=== PATIENT | female | born 1975 | race Caucasian/White ===

== ENCOUNTER 2021-03-10 17:04 | Emergency (ER) | payer MEDICAID ==
[2021-03-10 17:28] VITALS: BP 158/72; PULSE 93; RESP 16; TEMP 98
[2021-03-10] MEDS ORDERED: SODIUM CHLORIDE 0.9% 500 ML 500 ML IV STA (17:39)
[2021-03-10] MEDS ORDERED: DIPH,PERTUS(ACELL)TETVAC-LF 0.5 ML VIAL IM ONE (17:39)
[2021-03-10] MEDS ORDERED: HYDROmorphone 1 MG/ML 1 ML SYRINGE IVP STA (17:39)
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
== END 2021-03-10 18:30 | disposition other institution (70) ==
LOC: EC 17:04
DX: T22.132A Burn of first degree of left upper arm, initial encounter (principal); T31.0 Burns involving less than 10% of body surface; F17.200 Nicotine dependence, unspecified, uncomplicated; Z98.51 Tubal ligation status; X12.XXXA Contact with other hot fluids, initial encounter
CPT/HCPCS: 99291; 96374; 90471; 90715; J1170

== ENCOUNTER 2021-04-14 08:08 | Inpatient (IN) | payer MEDICAID, OTHER ==
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
[2021-04-14 09:04] LABS: Appearance,Urine Clear (Clear); Bilirubin,Urine Negative (Negative); Blood,Urine Negative (Negative); Color,Urine Dark Brown; Glucose,Urine (UA) Negative (Negative); Ketones,Urine Negative (Negative); Leukocyte Esterase,Urine Negative (Negative); Nitrite,Urine Negative (Negative); Protein,Urine Negative (Negative); Specific Gravity,Urine 1.005 (1.001-1.035); Urobilinogen,Urine <2.0 mg/dL (<2.0)
[2021-04-14 09:14] LABS: Basophils % (A) 0 %; Eosinophils # (A) 0.1 k/uL (0-0.7); Eosinophils % (A) 0 %; HCT 45.2 % (34.0-46.0); HGB 15.1 gm/dL (11.4-16.0); Lymphocytes % (A) 5 %; MCH 33.6 pg (25.0-35.0); MCHC 33.4 g/dL (31.0-37.0); MCV 100.6 fL (80.0-100.0); Mean Platelet Volume 7.5; Monocytes # (A) 0.7 k/uL (0-1.0); Monocytes % (A) 4 %; Neutrophils # (A) 16.3 k/uL (1.3-7.7); Neutrophils % (A) 90 %; Platelet Count 349 k/uL (150-450); RBC 4.49 m/uL (3.80-5.40); RDW 12.5 % (11.5-15.5); WBC 18.2 k/uL (3.8-10.6)
[2021-04-14 09:25] LABS: ALT 15 U/L (4-34); AST 20 U/L (14-36); African American GFR (CKD) >90 (>60 ml/min/1.73 sqM); Albumin 4.1 g/dL (3.5-5.0); Alkaline Phosphatase 60 U/L (38-126); Anion Gap 7 mmol/L; Blood Urea Nitrogen 10 mg/dL (7-17); Calcium 9.6 mg/dL (8.4-10.2); Carbon Dioxide 21 mmol/L (22-30); Chloride 106 mmol/L (98-107); Glucose 118 mg/dL (74-99); Non-African American GFR(CKD) >90 (>60 ml/min/1.73 sqM); Potassium 4.2 mmol/L (3.5-5.1); Sodium 134 mmol/L (137-145); Total Bilirubin 0.6 mg/dL (0.2-1.3); Total Protein 6.8 g/dL (6.3-8.2)
[2021-04-14 09:26] LABS: Amphetamine Screen,Urine Not Detected (NotDetected); Barbiturate Screen,Urine Not Detected (NotDetected); Benzodiazepines Screen,Urine Not Detected (NotDetected); Cocaine Screen,Urine Not Detected (NotDetected); Methadone Screen, Urine Not Detected (NotDetected); Opiate Screen,Urine Detected (NotDetected); Oxycodone Screen, Urine Not Detected (NotDetected); Phencyclidine Screen,Urine Not Detected (NotDetected); Tricyclic Antidepressant,Urine Not Detected (NotDetected); Urn Cannabinoid Scrn Detected (NotDetected)
--- NOTE | 2021-04-14 11:11 | CT ---
EXAMINATION TYPE: CT abdomen pelvis w con DATE OF EXAM: 04/14/2021 HISTORY: Urinary retention, Vaginal mass, dysuria, urinary frequency. CT DLP: 750.8mGycm Automated Exposure Control for Dose Reduction was Utilized. CONTRAST: CT scan of the abdomen and pelvis is performed without oral but with IV Contrast, patient injected wi th 100 mL of Isovue 300. COMPARISON: None. FINDINGS: LUNG BASES: Dependent atelectasis. LIVER/GB: No significant abnormality is appreciated. PANCREAS: No significant abnormality is seen. SPLEEN: No significant abnormality is seen. ADRENALS: No significant abnormality is seen. KIDNEYS: Symmetric cortical medullary uptake and excretion despite severe right and moderate to sever e left-sided pyelocaliectasis. Madrigal catheter decompresses bladder which is displaced anteriorly and superiorly axial image 58. Incidental accessory right renal artery coronal image 53 BOWEL: No suspicious small or large bowel dilatation. UTERUS/ADNEXA: Heterogeneous large uterus with areas of lobulation and calcification superiorly centr al hypodensity or fluid noted superior portion axial image 48 and inferior aspect sagittal image 58. Significant local mass effect occupying majority of pelvis and central mid to lower abdomen noted. Di fficulty visualizing normal or abnormal ovaries. Small amount of fluid with some prominent vessels al reji the periphery in the upper pelvis extending to left of midline. Size of lesion approximately 21 c m craniocaudal dimension by 14 cm transversely sagittal image 62 and coronal image 37 LYMPH NODES: No greater than 1cm abdominal or pelvic lymph nodes are appreciated. OSSEOUS STRUCTURES: Symmetric sclerosis bilateral sacroiliac joints consistent with osteitis condensa ns ilii. OTHER: Incidental origin of small caliber artery suspected left gastric artery directly from aorta, n ormal variant. IMPRESSION: Markedly enlarged lobulated heterogeneous uterus with significant local mass effect would favor fibroid type uterus. Other etiologies aren't entirely excluded. Either way due to local mass e ffect causing moderate to severe right greater than left hydronephrosis, surgical exploration or armando tonny is likely warranted.
[2021-04-14] MEDS ORDERED: SODIUM CHLORIDE 0.9% 1,000 ML IV ONE (12:18)
--- NOTE | 2021-04-14 16:52 | P.HPOB ---
History of Present Illness H&P Date: 04/14/21 Chief Complaint: Significant urinary retention, fibroid uterus The patient is a 46-year-old 3 para 2011 who is seen in the emergency room today for difficulty with urinary retention. In the emergency room she had a catheter placed and was drained of 2200 mL of urine. Computed tomography scan demonstrated a large fibroid uterus with bilateral hydronephrosis. The patient reports that she has had this difficulty for approximately a year and it seems to coincide with her cycles. She does continue to have regular cycles every 28- 30 days lasting for several days at a time which are not overly heavy or onerous in any other way. She has not had a ATM SERVICER evaluation most likely since the of her child many years ago. She is sexually active and denies any significant dyspareunia though she reports her partner recently mentioned to her that something felt significantly different to him during intercourse. The pain which prompted the patient to present to the emergency room has been completely relieved with draining the bladder. Obstetrical history: 3 para 2012 with 2 term vaginal deliveries and 1 elective interruption of . Method of contraception is tubal ligation. Gynecologic history: Patient denies any recent or historical history of infections to include STDs. She has not had a ATM SERVICER evaluation in many years. Review of Systems Review of systems is confined to history of present illness. Past Medical History Past Medical History: No Reported History Additional Past Medical History / Comment(s): Multiple UTIs/urinary retention, chronic low back pain History of Any Multi-Drug Resistant Organisms: None Reported Past Surgical History: Orthopedic Surgery, Tubal Ligation Additional Past Surgical History / Comment(s): bone graft left wrist at age 11, ORIF RT ELBOW SX X3 Past Anesthesia/Blood Transfusion Reactions: No Reported Reaction Past Psychological History: No Psychological Hx Reported Additional Psychological History / Comment(s): Pt resides with her spouse. She is independent. Smoking Status: Current every day smoker Past Alcohol Use History: Daily Additional Past Alcohol Use History / Comment(s): Pt started smoking in 1985 and is a ppd smoker. Pt states she drinks 2-6 beers per day. Past Drug Use History: None Reported Additional Drug Use History / Comment(s): QUIT TODAY 10/28/2015 - Past Family History Mother Family Medical History: No Reported History Additional Family Medical History / Comment(s): Mother is healthy Father Family Medical History: Hypertension Medications and Allergies Home Medications Medication Instructions Recorded Confirmed Type HYDROcodone/APAP 10-325MG [[place] 1 tab PO Q6H PRN 04/14/21 04/14/21 History 10] Allergies Allergy/AdvReac Type Severity Reaction Status Date / Time No Known Allergies Allergy Verified 04/14/21 11:11 Exam Vital Signs Temp Pulse Pulse Resp BP BP Pulse Ox 04/14/21 14:41 98.7 F 74 17 149/94 96 04/14/21 12:13 68 16 149/88 99 04/14/21 09:53 89 18 140/90 97 04/14/21 08:09 98.4 F 112 H 18 194/129 94 L Intake and Output 04/14/21 04/14/21 04/14/21 06:59 14:59 22:59 Output Total 2750 Balance -2750 Output: Urine 2750 Other: Voiding Method Indwelling Catheter Weight 56.699 kg In general, this is a well-developed, well-nourished white female in no acute distress. Her heart has a regular rhythm and rate without murmur. Her lungs are clear to auscultation bilaterally in all castle. Her abdomen is nondistended, has normal active bowel sounds, soft, nontender, and without any palpable masses. Her extremities are without any cyanosis, clubbing, or edema and are nontender to palpation bilaterally. Bimanual pelvic examination demonstrates the entire posterior cul-de-sac filled with a large fibroid. I am unable to appreciate the cervix as I believe it is diverted acutely anteriorly and that the uterus itself given the size and degree of inversion is obstructing outflow the urine through the urethra. I suspect the hydronephrosis is secondary to the tremendous distention of the bladder, not direct uterine press ure on the ureters themselves. Results Result Diagrams: 04/14/21 08:52 04/14/21 08:52 Abnormal Lab Results - Last 24 Hours (Table) 04/14/21 04/14/21 04/14/21 Range/Units 08:49 08:52 08:52 WBC 18.2 H (3.8-10.6) k/uL MCV 100.6 H (80.0-100.0) fL Neutrophils # 16.3 H (1.3-7.7) k/uL Sodium 134 L (137-145) mmol/L Carbon Dioxide 21 L (22-30) mmol/L Glucose 118 H (74-99) mg/dL Urine Opiates Screen Detected H (NotDetected) U Marijuana (THC) Screen Detected H (NotDetected) Assessment and Plan (1) Enlarged uterus Current Visit: Yes Status: Acute Code(s): N85.2 - HYPERTROPHY OF UTERUS SNOMED Code(s): 900464406 (2) Urinary retention Current Visit: Yes Status: Acute Code(s): R33.9 - RETENTION OF URINE, UNSPECIFIED SNOMED Code(s): 399413348 Plan: The patient was admitted secondary to acute obstruction of the urinary tract. As noted above, I suspect that it is due to the enlarged size with acute retroversion with the fundus of the uterus filling the cul-de-sac leading to acute obstruction of the urethra anteriorly. This will likely require hysterectomy to have complete resolution. In the short-term, I will allow the patient to have diet as tolerated as well as activity as tolerated with catheter in place while I range to find a time in the next day or 2 to proceed with total abdominal hysterectomy. As the patient does chronically take [place] through a physical medicine and rehabilitation doctor with him she has a contract, I have continued to [place] at a smaller dose of 5/325 mg every 6 hours when necessary. She reportedly takes 1 10/325 mg [place] daily for chronic low back pain secondary to an acute injury in 2005.
[2021-04-14] MEDS: HYDROcodone/APAP 5-325MG 1 EACH TAB PO PRN (18:41)
[2021-04-15] MEDS: HYDROcodone/APAP 5-325MG 1 EACH TAB PO PRN (00:49)
[2021-04-15] MEDS ORDERED: LACTATED RINGERS 1,000 ML IV ONE ×2 (10:05→12:25)
[2021-04-15] MEDS ORDERED: ONDANSETRON 4 MG/2 ML VIAL ONE (10:13)
[2021-04-15] MEDS ORDERED: DEXAMETHASONE SOD PHOSPHATE 4 MG/ML 1 ML VIAL IV ONE (10:15)
[2021-04-15] MEDS ORDERED: MIDAZOLAM 2 MG/2 ML VIAL IV ONE (10:57)
[2021-04-15] MEDS ORDERED: SUCCINYLCHOLINE CHLORIDE 100 MG/5 ML SYR IV ONE (11:38)
[2021-04-15] MEDS ORDERED: GLYCOPYRROLATE 0.2 MG/ML 2 ML VIAL ONE (11:38)
[2021-04-15] MEDS ORDERED: MIDAZOLAM 2 MG/2 ML VIAL ONE (11:38)
[2021-04-15] MEDS ORDERED: fentaNYL (PF) 50 MCG/ML 2 ML AMP ONE (11:38)
[2021-04-15] MEDS ORDERED: HYDROmorphone (PF) 1 MG/ML ONE (11:38)
[2021-04-15] MEDS ORDERED: MORPHINE SULFATE (PF) 0.3 MG/0.3 ML SYR ONE (11:38)
[2021-04-15] MEDS ORDERED: PROPOFOL 10 MG/ML 20 ML VIAL IV ONE (11:38)
[2021-04-15] MEDS ORDERED: ROCURONIUM 10 MG/ML (5 ML VIAL) IV ONE (11:38)
[2021-04-15] MEDS ORDERED: NEOSTIGMINE 1 MG/ML 10 ML VIAL ONE (11:38)
[2021-04-15] MEDS ORDERED: LIDOCAINE 1% INJ 10MG/ML (20 ML MDV) ONE (11:38)
[2021-04-15] MEDS ORDERED: diphenhydrAMINE 50 MG/ML 1 ML VIAL IVP PRN (12:56)
[2021-04-15] MEDS ORDERED: SIMETHICONE 80 MG CHEWABLE PO PRN (12:56)
[2021-04-15] MEDS ORDERED: ONDANSETRON 4 MG/2 ML VIAL IVP PRN (12:56)
[2021-04-15] MEDS ORDERED: METOCLOPRAMIDE 5 MG/ML 2 ML VIAL IVP PRN (12:56)
[2021-04-15] MEDS ORDERED: HYDROcodone/APAP 5-325MG 1 EACH TAB PO PRN (13:01)
--- NOTE | 2021-04-15 13:11 | P.OP ---
Date of Procedure: 04/15/21 Preoperative Diagnosis: #1. Large symptomatic fibroid uterus #2. Urinary retention Postoperative Diagnosis: Same, pending pathology Procedure(s) Performed: #1. Total abdominal hysterectomy Anesthesia: SANDY Surgeon: Oscar Serrano Railroad Track Inspector #1: Sabrina Atwood Estimated Blood Loss (ml): 500 IV fluids (ml): 1,000 Urine output (ml): 200 Pathology: other (Uterus, left tube and ovary) Disposition: PACU Operative Findings: After anesthesia had been administered, abdominal examination demonstrated the uterus to be just below the umbilicus which was not appreciated previously secondary to patient discomfort with exam. The decision was therefore made to proceed with a vertical midline incision. Intraoperatively, there were multiple large fibroids, both intramural as well as pedunculated. The mass felt on pelvic exam filling the posterior cul-de-sac is unclear as to whether it is a fibroid involving the left ovary or whether the mass may be of ovarian origin. Nevertheless, it was required to be included in the specimen. The vascularity, particularly on the patient's left side was significant. There was no evidence of any adenopathy palpable in the pelvis or periaortic area. The pelvis was otherwise clean. The entire cervix was removed. The right ovary appeared to be completely healthy and was therefore left in place. Description of Procedure: The patient was prepped and draped after identifying the size of the uterus abdominally and after general endotracheal anesthesia was administered by the anesthesiologist. A vertical midline incision was made from just below the umbilicus to just above the pubic symphysis and extended into the abdominal cavity without difficulty. The large fibroid uterus with multiple different areas of fibromatous change was noted with a very large mass filling the posterior cul-de-sac. Ultimately, the mass was elevated from deep in the pelvis and through the incision allowing clear visualization of the vascularity which was most prominent on the patient's left side. At that time the ovary appeared to be either involved with the fibromatous change or perhaps involved in its own pathology but was contiguous with the uterus. After identifying the proper anatomy, the right round ligament was elevated, clamped with a Arlyn-Martin clamp, cut, and ligated with a stitch of 0 Vicryl. The bladder peritoneum was developed to the midline. A window was made in the posterior leaf of the peritoneum to isolate the utero-ovarian pedicle which was clamped with a Mingo Martin clamp, cut, and suture-ligated with a transfixion stitch of 0 Vicryl followed by free tie of 0 Vicryl. Attention was then turned to the left side which was much more complex regarding the vascularity. The round ligament was again elevated, clamped with Arlyn-Martin clamp, cut, and the ligated with a stitch of 0 Vicryl. Again a safe window was able to be identified in the posterior leaf of the peritoneum which was opened sharply allowing isolation of the infundibulopelvic ligament and a tremendous amount of vascularity to both the tube and ovary. A curved Arlyn-Martin clamp was placed across the entire pedicle with a back clamp placed for backbleeding and the pedicle divided. It was suture-ligated with a stitch of 0 Vicryl while the baby a free tie of 0 Vicryl. The uterine vasculature was then identified bilaterally. Each side was clamped with curved Arlyn-Martin clamp, cut, and suture-ligated with a transfixion stitch of 0 Vicryl. Serial bites were then taken down the cardinal ligament towards the uterosacral ligaments on each side with straight Mingo Martin clamps. Each was cut with the Lovett scissors, and suture- ligated with a transfixion stitch of 0 Vicryl. At the angle of the vagina, 2 curved Arlyn-Martin clamps were utilized to come underneath the cervix allowing the specimen to be amputated from the patient where was then followed and sent for pathological diagnoses. The angles of the vagina were then transfixion stitch with 0 Vicryl. The intervening open vaginal cuff was grasped with [place] clamps and the cuff closed from angle to angle with a running locking stitch of 0 Vicryl. Some ongoing bleeding was noted in the area between the uterine vasculature on the right and the ovarian pedicle which was left in place. This was transfixion stitched with several [id number] stitches of 0 Vicryl. The patient's urine remained clear throughout the entire case. There was no concern for involvement anywhere in or around the likely placement of the ureters. Thorough irrigation was carried out and no further points of bleeding were noted. The sponge count was then checked and found to be accurate. The parietal peritoneum was loosely reapproximated and the fascia closed with 2 running stitches of 0 Vicryl proceeding from each end of the incision to the midline. The subcutaneous tissues were examined and made hemostatic with the Bovie. As they were gaping slightly, they were reapproximated with 3 interrupted stitches of 3-0 chromic catgut. The skin was reapproximated with regular surgical sahara and a dressing applied. Estimated blood loss for the case was approximate 500 mL. There were no complications. All sponge, instrument, and needle counts were correct. The patient tolerated the procedure well and proceeded to the recovery room in stable condition.
[2021-04-15] MEDS ORDERED: KETOROLAC 15 MG/ML 1 ML VIAL IVP ONE (13:40)
[2021-04-15] MEDS ORDERED: HYDROmorphone 0.5 MG/0.5 ML SYRINGE IVP ONE (13:42)
[2021-04-15] MEDS ORDERED: KETOROLAC 30 MG/ML 1 ML VIAL IVP PRN (14:08)
[2021-04-15] MEDS ORDERED: NALOXONE 0.4 MG/ML 1 ML VIAL IV PRN (14:08)
[2021-04-15] MEDS: LACTATED RINGERS 1,000 ML IV SCH ×2 (14:17→23:58)
[2021-04-15] MEDS: HYDROmorphone 0.5 MG/0.5 ML SYRINGE IVP PRN ×2 (16:19→23:58)
[2021-04-15] MEDS: KETOROLAC 30 MG/ML 1 ML VIAL IVP PRN (20:37)
[2021-04-15] MEDS: SENNOSIDES-DOCUSATE SODIUM 1 EACH TAB PO SCH (22:54)
[2021-04-16] MEDS: KETOROLAC 30 MG/ML 1 ML VIAL IVP PRN (04:29)
[2021-04-16] MEDS: LACTATED RINGERS 1,000 ML IV SCH ×2 (05:26→20:16)
[2021-04-16 05:29] LABS: Basophils % (A) 0 %; Eosinophils # (A) 0.1 k/uL (0-0.7); Eosinophils % (A) 1 %; Lymphocytes # (A) 2.7 k/uL (1.0-4.8); Lymphocytes % (A) 17 %; MCH 33.5 pg (25.0-35.0); MCHC 32.6 g/dL (31.0-37.0); MCV 102.8 fL (80.0-100.0); Mean Platelet Volume 7.6; Monocytes # (A) 1.1 k/uL (0-1.0); Monocytes % (A) 7 %; Neutrophils # (A) 11.4 k/uL (1.3-7.7); Neutrophils % (A) 73 %; Platelet Count 302 k/uL (150-450); RBC 3.89 m/uL (3.80-5.40); RDW 11.8 % (11.5-15.5); WBC 15.6 k/uL (3.8-10.6)
--- NOTE | 2021-04-16 06:55 | P.PN ---
Progress Note - Text Progress Note Date: 04/16/21 Postoperative day 1 status post total abdominal hysterectomy, under general end otracheal anesthesia , and intrathecal morphine given for postoperative analgesia, patient doing well, there is no anesthesia related complications, Patient had no headache, vital signs stable , Assessment and plan= postop day 1 status post total abdominal hysterectomy, doing well there is no anesthesia related complication.
--- NOTE | 2021-04-16 08:37 | P.PN ---
Subjective Progress Note Date: 04/16/21 the patient reports that her pain is well-controlled today. She has been up and moving around without significant difficulty. She has been able to void without difficulty as well. She otherwise had flatus last evening and is anticipating eating solids today. Objective - Vital Signs Vital signs: Vital Signs Temp 98.8 F 04/16/21 04:00 Pulse 61 04/16/21 04:00 Resp 14 04/16/21 04:00 BP 122/74 04/16/21 04:00 Pulse Ox 96 04/16/21 04:00 Intake & Output 04/15/21 04/16/21 04/16/21 18:59 06:59 18:59 Intake Total 2000 Output Total 800 550 Balance 1200 -550 Weight 56.699 kg Intake: IV 1999 Output: Urine 300 550 Estimated Blood Loss 500 - Exam in general, this is a well-developed, well-nourished white female in no acute distress. Her heart has a regular rhythm and rate without murmur. Her lungs clear to auscultation bilaterally in all castle. Her abdomen is nondistended, soft, appropriately tender postsurgically. The incision is clean, dry, and intact. The dressing has been removed and discarded. Her extremities without any cyanosis, clubbing, or edema and are nontender to palpation bilaterally. - Labs CBC & Chem 7: 04/16/21 05:07 04/14/21 08:52 Labs: Abnormal Lab Results - Last 24 Hours (Table) 04/16/21 Range/Units 05:07 WBC 15.6 H (3.8-10.6) k/uL MCV 102.8 H (80.0-100.0) fL Neutrophils # 11.4 H (1.3-7.7) k/uL Monocytes # 1.1 H (0-1.0) k/uL Assessment and Plan (1) Enlarged uterus Current Visit: Yes Status: Acute Code(s): N85.2 - HYPERTROPHY OF UTERUS SNOMED Code(s): 564680712 (2) Urinary retention Current Visit: Yes Status: Acute Code(s): R33.9 - RETENTION OF URINE, UNSPECIFIED SNOMED Code(s): 920114683 Plan: the patient is status post total abdominal hysterectomy with left salpingo- oophorectomy yesterday which was performed at an incompetent fashion. She is doing well postoperatively. I have strongly encouraged her to be up and ambulatory on a regular basis. Her diet has been advanced to regular. I would anticipate discharge home tomorrow. Today will be spent insuringadequate pain control with oral pain medications.
[2021-04-16 10:30] VITALS: RESP 16
[2021-04-16] MEDS: SENNOSIDES-DOCUSATE SODIUM 1 EACH TAB PO SCH ×2 (10:42→20:55)
[2021-04-16] MEDS: HYDROcodone/APAP 5-325MG 1 EACH TAB PO PRN ×3 (10:42→23:54)
[2021-04-16] MEDS: IBUPROFEN 600 MG TAB PO PRN ×2 (14:09→20:55)
[2021-04-17] MEDS: IBUPROFEN 600 MG TAB PO PRN ×2 (03:30→10:17)
[2021-04-17] MEDS: HYDROcodone/APAP 5-325MG 1 EACH TAB PO PRN (06:03)
[2021-04-17 08:54] VITALS: BP 151/77; PULSE 66; TEMP 98.3
--- NOTE | 2021-04-17 09:10 | P.DS ---
Providers Date of admission: 04/14/21 12:18 Expected date of discharge: 04/17/21 Attending physician: Oscar Serrano Primary care physician: Stated None - Discharge Diagnosis(es) (1) Enlarged uterus Current Visit: Yes Status: Acute (2) Urinary retention Current Visit: Yes Status: Acute Hospital Course: The patient is a 46-year-old 3 para 2012 admitted through the emergency room after presenting with significant pain and having been found with the urinary retention which was drained of 2200 mL of urine. Computed tomography scan demonstrated a significantly enlarged fibroid uterus which was thought to be the etiology of the urinary retention. She was admitted for management. After examination of, decision was made to proceed with total abdominal hysterectomy to which the patient consented. She was taken the operating room where she underwent LELE, LSO in an uncomplicated fashion. Her postoperative course was unremarkable with vital signs being stable and her temperature was afebrile throughout. She straights no difficulties voiding after removal of the uterus. She was deemed stable for discharge on postoperative day #2 was discharged home to follow-up in the office in 1 week for staple removal, and 6 weeks routinely. Discharge instructions included calling for any significantly increased fever, pain, incisional complaints, vaginal bleeding, or anything else that concerned her. She was additionally instructed to have nothing in the vagina for at least 6 weeks time to include intercourse. She is less instructed to do no driving until off of pain medications or 2 weeks' time, whichever came first. She understood her instructions and agrees follow up as noted above. Discharge medications included only her normal home medications plus a prescription for Hector 5/325 mg, 1-2 by mouth every 6 hours when necessary pain, #24 dispensed with no refills. Discharge hemoglobin and hematocrit were 13.0 and 40.0. Procedures: #1. Total abdominal hysterectomy with left salpingo-oophorectomy Patient Condition at Discharge: Stable Plan - Discharge Summary Discharge Rx Participant: Yes New Discharge Prescriptions: No Action HYDROcodone/APAP 10-325MG [Hector 10] 1 tab PO Q6H PRN PRN Reason: Pain Discharge Medication List HYDROcodone/APAP 10-325MG [Hector 10] 1 tab PO Q6H PRN 04/14/21 [History] Follow up Appointment(s)/Referral(s): None,Stated [Primary Care Provider] - 1-2 days Oscar Serrano MD [STAFF PHYSICIAN] - 1 Week Discharge Disposition: HOME SELF-CARE
[2021-04-17] MEDS: SENNOSIDES-DOCUSATE SODIUM 1 EACH TAB PO SCH (09:29)
== END 2021-04-17 10:27 | disposition home or self-care (01) | DRG 742 ==
LOC: EC 08:08 → 4FBP 12:18
PROVIDERS: ADMIT Obstetrics & Gynecology; ATTEND Obstetrics & Gynecology
PROC: 0UT90ZZ Resection of Uterus, Open Approach (ICD-10-PCS; principal; 2021-04-14)
PROC: 0UTC0ZZ Resection of Cervix, Open Approach (ICD-10-PCS; 2021-04-14)
PROC: 0UT60ZZ Resection of Left Fallopian Tube, Open Approach (ICD-10-PCS; 2021-04-14)
PROC: 0UT10ZZ Resection of Left Ovary, Open Approach (ICD-10-PCS; 2021-04-14)
DX: D25.2 Subserosal leiomyoma of uterus (principal); N13.30 Unspecified hydronephrosis; F17.210 Nicotine dependence, cigarettes, uncomplicated; R33.8 Other retention of urine; Z20.822 Contact with and (suspected) exposure to COVID-19; G89.29 Other chronic pain; M54.9 Dorsalgia, unspecified; Z87.440 Personal history of urinary (tract) infections; Z82.49 Family history of ischemic heart disease and other diseases of the circulatory system
CPT/HCPCS: 36415; 74177; 80053; 80306; 81003; 81025; 85025; 87635; 88307; 99285

== ENCOUNTER 2024-09-06 20:23 | Inpatient (IN) | payer OTHER ==
[2024-09-06 21:10] LABS: Basophils # (A) 0.11 10*3/uL (0.00-0.10); Basophils % (A) 0.5 %; Eosinophils # (A) 0.11 10*3/uL (0.04-0.35); Eosinophils % (A) 0.5 %; HCT 38.1 % (37.2-46.3); HGB 13.8 g/dL (12.0-15.0); Lymphocytes # (A) 3.49 10*3/uL (0.90-5.00); MCH 32.2 pg (27.0-32.0); MCHC 36.2 g/dL (32.0-37.0); Mean Platelet Volume 9.4 fL (9.5-12.2); Monocytes # (A) 1.87 10*3/uL (0.20-1.00); Monocytes % (A) 9.1 %; Neutrophils # (A) 14.86 10*3/uL (1.80-7.70); Neutrophils % (A) 72.6 %; Platelet Count 308 10*3/uL (140-440); RBC 4.28 10*6/uL (4.10-5.20); RDW 11.9 % (11.5-14.5)
[2024-09-06 21:24] LABS: ALT 87 U/L (4-34); AST 42 U/L (14-36); African American GFR (CKD) >90 (>60 ml/min/1.73 sqM); Albumin 4.4 g/dL (3.5-5.0); Alkaline Phosphatase 96 U/L (38-126); Anion Gap 9 mmol/L; Blood Urea Nitrogen 14 mg/dL (7-17); Calcium 9.2 mg/dL (8.4-10.2); Carbon Dioxide 26 mmol/L (22-30); Chloride 97 mmol/L (98-107); Glucose 123 mg/dL (74-99); Non-African American GFR(CKD) >90 (>60 ml/min/1.73 sqM); Potassium 3.5 mmol/L (3.5-5.1); Sodium 132 mmol/L (137-145); Total Bilirubin 0.8 mg/dL (0.2-1.3); Total Protein 6.9 g/dL (6.3-8.2)
--- NOTE | 2024-09-06 21:40 | ED ---
General Adult HPI - General Chief complaint: Neuro Symptoms/Deficit Stated complaint: Confusion/AMS Time Seen by Provider: 09/06/24 21:17 Source: patient, family, RN notes reviewed, old records reviewed Mode of arrival: ambulatory Limitations: no limitations - History of Present Illness Initial comments: 49-year-old female presenting with confusion and speech abnormality which began at 1 PM today. Denies slurred speech but states that she has difficult time finding certain words. She presents for evaluation at approximately 2030. Patient states her symptoms are intermittent. Patient HAS prior history of CVA in the remote past.. She denies limb numbness or weakness. Denies headache. States she did take a Grover earlier today. Denies alcohol. Denies chest pain or abdominal pain. - Related Data Home Medications Medication Instructions Recorded Confirmed HYDROcodone/APAP 10-325MG [Grover 1 tab PO Q6H PRN 04/14/21 04/14/21 10] Allergies Allergy/AdvReac Type Severity Reaction Status Date / Time No Known Allergies Allergy Verified 09/06/24 20:40 Review of Systems ROS Statement: Those systems with pertinent positive or pertinent negative responses have been documented in the HPI. ROS Other: All systems not noted in ROS Statement are negative. Past Medical History Past Medical History: No Reported History Additional Past Medical History / Comment(s): Multiple UTIs/urinary retention, chronic low back pain History of Any Multi-Drug Resistant Organisms: None Reported Past Surgical History: Orthopedic Surgery, Tubal Ligation Additional Past Surgical History / Comment(s): bone graft left wrist at age 11, ORIF RT ELBOW SX X3 Past Anesthesia/Blood Transfusion Reactions: No Reported Reaction Past Psychological History: No Psychological Hx Reported Smoking Status: Current every day smoker, Former smoker Past Alcohol Use History: None Reported, Daily Past Drug Use History: None Reported - Past Family History Mother Family Medical History: No Reported History Additional Family Medical History / Comment(s): Mother is healthy Father Family Medical History: Hypertension General Exam Limitations: no limitations General appearance: alert, in no apparent distress Head exam: Present: atraumatic, normocephalic Eye exam: Present: normal appearance, PERRL ENT exam: Present: normal exam Neck exam: Present: normal inspection. Absent: tenderness, meningismus Respiratory exam: Present: normal lung sounds bilaterally. Absent: respiratory distress, wheezes Cardiovascular Exam: Present: regular rate, normal rhythm GI/Abdominal exam: Present: soft. Absent: distended, tenderness, guarding Extremities exam: Present: normal inspection, normal capillary refill. Absent: pedal edema, joint swelling Neurological exam: Present: alert, oriented X3, CN II-XII intact, other (Bilateral finger-nose and bilateral iakx-ad-mofv are normal. 5 out of 5 strength throughout.). Absent: motor sensory deficit (Speech is fluent, NIH of 1 when expressive aphasia is present. 0 at the time my evaluation) Psychiatric exam: Present: normal affect, normal mood Skin exam: Present: warm, dry, intact. Absent: cyanosis, diaphoretic Course Vital Signs 09/06/24 09/06/24 20:36 22:19 Temperature 99 F Pulse Rate 107 H 95 Respiratory 19 18 Rate Blood Pressure 142/80 134/82 O2 Sat by Pulse 96 98 Oximetry Medical Decision Making - Medical Decision Making Was pt. sent in by a medical professional or institution (, PA, ADMINISTR[employer]IVE [employer]BER, urgent care, hospital, or half-way...) When possible be specific @ -No Did you speak to anyone other than the patient for history (EMS, parent, family, police, friend...)? What history was obtained from this source @ -Patient's Did you review nursing and triage notes (agree or disagree)? Why? @ -I reviewed and agree with nursing and triage notes Were old charts reviewed (outside hosp., previous admission, EMS record, old EKG , old radiological studies, urgent care reports/EKG's, half-way records)? Report findings @ -No old charts were reviewed Differential CVA Ischemic stroke, hemorrhagic stroke, brain tumor, atypical migraine, Wernicke's encephalopathy, seizure, multiple sclerosis, meningitis, encephalitis, hypog lycemia, Guillain-Levy, electrolytes disturbance, myasthenia gravis.... This is not meant to be an all-inclusive list EKG interpreted by me (3pts min.). @ -Sinus rhythm rate of 98, CO interval 133, QRS duration 93, QTc [address] segment elevation. X-rays interpreted by me (1pt min.). @ -None done CT interpreted by me (1pt min.). @CT brain is negative for intracranial hemorrhage, shows remote cerebellar infarct. CT angiography negative for acute occlusion or stenosis. U/S interpreted by me (1pt. min.). @ -None done What testing was considered but not performed or refused? (CT, X-rays, U/S, labs)? Why? @ -None What meds were considered but not given or refused? Why? @ -None Did you discuss the management of the patient with other professionals (professionals i.e. , PA, AD[employer]IST[employer]BER, lab, RT, psych nurse, geriatric social worker, residential appraiser, teacher, sustainability officer, briefcase sewer)? Give summary @ -[EMH Was smoking cessation discussed for >3mins.? @ -No Was critical care preformed (if so, how long)? @ -No Were there social determinants of health that impacted care today? How? (Homelessness, low income, unemployed, alcoholism, drug addiction, transportation, low edu. Level, literacy, decrease access to med. care, detention, rehab)? @ -No Was there de-escalation of care discussed even if they declined (Discuss DNR or withdrawal of care, Hospice)? DNR status @ -No What co-morbidities impacted this encounter? (DM, HTN, Smoking, COPD, CAD, Cancer, CVA, ARF, Chemo, Hep., AIDS, mental health diagnosis, sleep apnea, morbid obesity)? @Previous CVA Was patient admitted / discharged? Hospital course, mention meds given and route, prescriptions, significant lab abnormalities, going to OR and other pert inent info. @ -49-year-old female presenting with speech abnormality. Symptoms began 7-1/2 hours prior to arrival. No limb symptoms. Patient has fluent speech at the time my evaluation but has had some word finding difficulty. The word finding difficulty is not consistent. When present her NIH is 1. CT and CT angiography are ordered. Laboratory testing ordered. She has a leukocytosis of uncertain etiology. Patient is in sinus rhythm with a stable blood pressure. There is concern for CVA. Patient admitted for neuroconsult, MRI of the brain. Undiagnosed new problem with uncertain prognosis? @ -No Drug Therapy requiring intensive monitoring for toxicity (Heparin, Nitro, Insulin, Cardizem)? @ -No Were any procedures done? @ -No Diagnosis/symptom? @ -[TIA Acute, or Chronic, or Acute on Chronic? @ -Acute Uncomplicated (without systemic symptoms) or Complicated (systemic symptoms)? @Complicated Side effects of treatment? @ -[No Exacerbation, Progression, or Severe Exacerbation? @ -No Poses a threat to life or bodily function? How? (Chest pain, USA, DE, pneumonia, PE, COPD, DKA, ARF, appy, cholecystitis, CVA, Diverticulitis, Homicidal, Suicidal, threat to staff... and all critical care pts) @Yes, CVA - Lab Data Result diagrams: 09/06/24 19:32 09/06/24 19:32 Lab Results 09/06/24 09/06/24 09/06/24 Range/Units 19:32 19:32 19:32 WBC 20.50 H (4.50-10.00) 10*3/uL RBC 4.28 (4.10-5.20) 10*6/uL Hgb 13.8 (12.0-15.0) g/dL Hct 38.1 (37.2-46.3) % MCV 89.0 (80.0-97.0) fL MCH 32.2 H (27.0-32.0) pg MCHC 36.2 (32.0-37.0) g/dL Plt Count 308 (140-440) 10*3/uL MPV 9.4 L (9.5-12.2) fL Immature Gran % (Auto) 0.3 % Neutrophils % 72.6 % Lymphocytes % 17.0 % Monocytes % 9.1 % Eosinophils % 0.5 % Basophils % 0.5 % Immature Gran # 0.06 H (0.00-0.04) 10*3/uL Neutrophils # 14.86 H (1.80-7.70) 10*3/uL Lymphocytes # 3.49 (0.90-5.00) 10*3/uL Monocytes # 1.87 H (0.20-1.00) 10*3/uL Eosinophils # 0.11 (0.04-0.35) 10*3/uL Basophils # 0.11 H (0.00-0.10) 10*3/uL Sodium 132 L (137-145) mmol/L Potassium 3.5 (3.5-5.1) mmol/L Chloride 97 L (98-107) mmol/L Carbon Dioxide 26 (22-30) mmol/L Anion Gap 9 mmol/L BUN 14 (7-17) mg/dL Creatinine 0.65 (0.52-1.04) mg/dL Est GFR (CKD-EPI)AfAm >90 (>60 ml/min/1.73 sqM) Est GFR (CKD-EPI)NonAf >90 (>60 ml/min/1.73 sqM) Glucose 123 H (74-99) mg/dL POC Glucose (mg/dL) (70-110) mg/dL POC Glu Architecture Manager ID Calcium 9.2 (8.4-10.2) mg/dL Total Bilirubin 0.8 (0.2-1.3) mg/dL AST 42 H (14-36) U/L ALT 87 H (4-34) U/L Alkaline Phosphatase 96 (38-126) U/L Troponin I <0.012 (0.000-0.034) ng/mL Total Protein 6.9 (6.3-8.2) g/dL Albumin 4.4 (3.5-5.0) g/dL Urine Color Urine Appearance (Clear) Urine pH (5.0-8.0) Ur Specific Mountain (1.001-1.035) Urine Protein (Negative) Urine Glucose (UA) (Negative) Urine Ketones (Negative) Urine Blood (Negative) Urine Nitrite (Negative) Urine Bilirubin (Negative) Urine Urobilinogen (<2.0) mg/dL Ur Leukocyte Esterase (Negative) Urine Opiates Screen (NotDetected) Ur Oxycodone Screen (NotDetected) Urine Methadone Screen (NotDetected) Ur Barbiturates Screen (NotDetected) U Tricyclic Antidepress (NotDetected) Ur Phencyclidine Scrn (NotDetected) Ur Amphetamines Screen (NotDetected) U Methamphetamines Scrn (NotDetected) U Benzodiazepines Scrn (NotDetected) Urine Cocaine Screen (NotDetected) U Marijuana (THC) Screen (NotDetected) Blood Type Blood Type Confirm Blood Type Recheck Bld Type Recheck Status Antibody Screen Spec Expiration Date 09/06/24 09/06/24 09/06/24 Range/Units 21:33 21:38 22:24 WBC (4.50-10.00) 10*3/uL RBC (4.10-5.20) 10*6/uL Hgb (12.0-15.0) g/dL Hct (37.2-46.3) % MCV (80.0-97.0) fL MCH (27.0-32.0) pg MCHC (32.0-37.0) g/dL Plt Count (140-440) 10*3/uL MPV (9.5-12.2) fL Immature Gran % (Auto) % Neutrophils % % Lymphocytes % % Monocytes % % Eosinophils % % Basophils % % Immature Gran # (0.00-0.04) 10*3/uL Neutrophils # (1.80-7.70) 10*3/uL Lymphocytes # (0.90-5.00) 10*3/uL Monocytes # (0.20-1.00) 10*3/uL Eosinophils # (0.04-0.35) 10*3/uL Basophils # (0.00-0.10) 10*3/uL Sodium (137-145) mmol/L Potassium (3.5-5.1) mmol/L Chloride (98-107) mmol/L Carbon Dioxide (22-30) mmol/L Anion Gap mmol/L BUN (7-17) mg/dL Creatinine (0.52-1.04) mg/dL Est GFR (CKD-EPI)AfAm (>60 ml/min/1.73 sqM) Est GFR (CKD-EPI)NonAf (>60 ml/min/1.73 sqM) Glucose (74-99) mg/dL POC Glucose (mg/dL) (70-110) mg/dL POC Glu Architecture Manager ID Calcium (8.4-10.2) mg/dL Total Bilirubin (0.2-1.3) mg/dL AST (14-36) U/L ALT (4-34) U/L Alkaline Phosphatase (38-126) U/L Troponin I (0.000-0.034) ng/mL Total Protein (6.3-8.2) g/dL Albumin (3.5-5.0) g/dL Urine Color Colorless Urine Appearance Clear (Clear) Urine pH 7.0 (5.0-8.0) Ur Specific Mountain 1.041 H (1.001-1.035) Urine Protein Negative (Negative) Urine Glucose (UA) Negative (Negative) Urine Ketones 1+ H (Negative) Urine Blood Negative (Negative) Urine Nitrite Negative (Negative) Urine Bilirubin Negative (Negative) Urine Urobilinogen <2.0 (<2.0) mg/dL Ur Leukocyte Esterase Negative (Negative) Urine Opiates Screen Detected H (NotDetected) Ur Oxycodone Screen Not Detected (NotDetected) Urine Methadone Screen Not Detected (NotDetected) Ur Barbiturates Screen Not Detected (NotDetected) U Tricyclic Antidepress Not Detected (NotDetected) Ur Phencyclidine Scrn Not Detected (NotDetected) Ur Amphetamines Screen Not Detected (NotDetected) U Methamphetamines Scrn Not Detected (NotDetected) U Benzodiazepines Scrn Not Detected (NotDetected) Urine Cocaine Screen Not Detected (NotDetected) U Marijuana (THC) Screen Not Detected (NotDetected) Blood Type A Positive Blood Type Confirm A Positive Blood Type Recheck No Previous Record Bld Type Recheck Status CABO Indicated Antibody Screen NEGATIVE Spec Expiration Date 09/09/2024 - 233709/06/24 Range/Units 22:35 WBC (4.50-10.00) 10*3/uL RBC (4.10-5.20) 10*6/uL Hgb (12.0-15.0) g/dL Hct (37.2-46.3) % MCV (80.0-97.0) fL MCH (27.0-32.0) pg MCHC (32.0-37.0) g/dL Plt Count (140-440) 10*3/uL MPV (9.5-12.2) fL Immature Gran % (Auto) % Neutrophils % % Lymphocytes % % Monocytes % % Eosinophils % % Basophils % % Immature Gran # (0.00-0.04) 10*3/uL Neutrophils # (1.80-7.70) 10*3/uL Lymphocytes # (0.90-5.00) 10*3/uL Monocytes # (0.20-1.00) 10*3/uL Eosinophils # (0.04-0.35) 10*3/uL Basophils # (0.00-0.10) 10*3/uL Sodium (137-145) mmol/L Potassium (3.5-5.1) mmol/L Chloride (98-107) mmol/L Carbon Dioxide (22-30) mmol/L Anion Gap mmol/L BUN (7-17) mg/dL Creatinine (0.52-1.04) mg/dL Est GFR (CKD-EPI)AfAm (>60 ml/min/1.73 sqM) Est GFR (CKD-EPI)NonAf (>60 ml/min/1.73 sqM) Glucose (74-99) mg/dL POC Glucose (mg/dL) 109 (70-110) mg/dL POC Glu Architecture Manager ID Batsheva Luther Calcium (8.4-10.2) mg/dL Total Bilirubin (0.2-1.3) mg/dL AST (14-36) U/L ALT (4-34) U/L Alkaline Phosphatase (38-126) U/L Troponin I (0.000-0.034) ng/mL Total Protein (6.3-8.2) g/dL Albumin (3.5-5.0) g/dL Urine Color Urine Appearance (Clear) Urine pH (5.0-8.0) Ur Specific Mountain (1.001-1.035) Urine Protein (Negative) Urine Glucose (UA) (Negative) Urine Ketones (Negative) Urine Blood (Negative) Urine Nitrite (Negative) Urine Bilirubin (Negative) Urine Urobilinogen (<2.0) mg/dL Ur Leukocyte Esterase (Negative) Urine Opiates Screen (NotDetected) Ur Oxycodone Screen (NotDetected) Urine Methadone Screen (NotDetected) Ur Barbiturates Screen (NotDetected) U Tricyclic Antidepress (NotDetected) Ur Phencyclidine Scrn (NotDetected) Ur Amphetamines Screen (NotDetected) U Methamphetamines Scrn (NotDetected) U Benzodiazepines Scrn (NotDetected) Urine Cocaine Screen (NotDetected) U Marijuana (THC) Screen (NotDetected) Blood Type Blood Type Confirm Blood Type Recheck Bld Type Recheck Status Antibody Screen Spec Expiration Date Disposition Clinical Impression: Transient cerebral ischemia Disposition: ADMITTED IP TO THIS HOSP Condition: Stable Is patient prescribed a controlled substance at d/c from ED?: No Referrals: None,Stated [Primary Care Provider] - 1-2 days Time of Disposition: 22:52
--- NOTE | 2024-09-06 22:15 | CT ---
EXAMINATION TYPE: CT brain wo con DATE OF EXAM: 09/06/2024 10:03 PM COMPARISON: None. CLINICAL INDICATION: Female, 49 years old with history of Expressive aphasia, SENT TO [facility] RAD TECHNIQUE: Brain: Axial CT images of the brain were obtained with coronal and sagittal reformats created and rev iewed. Contrast used: None. Oral contrast used: None. CT DLP: 1443 mGycm, Automated exposure control for dose reduction was used. FINDINGS: Brain: Extra-axial spaces: No abnormal extra-axial fluid collections. Ventricular system: Within normal limits Cerebral parenchyma: No acute intraparenchymal hemorrhage or mass effect. The mcmahon-white junction is well differentiated. Cerebellum: Loss of mcmahon-white matter differentiation involving the right superior cerebellum. Mass effect: No evidence of midline shift. Intracranial vasculature: unremarkable Soft tissues: Normal. Calvarium/osseous structures: No depressed skull fracture. Paranasal sinuses and mastoid air cells: Mild scattered paranasal sinus disease. Visualized orbits: Orbital contents are intact. IMPRESSION: Age-indeterminate CVA to the superior right cerebellum. Correlate with patient's history. No addition al evidence for acute/subacute CVA. 09/06/2024 10:12 PM,09/06/2024 10:03 PM,Power Gibson,CT brain wo con,[id number] [facility], , 09/06/2024 10:13 PM
[2024-09-06] MEDS: SODIUM CHLORIDE 0.9% 1,000 ML IV ONE (22:19)
--- NOTE | 2024-09-06 22:23 | CT ---
EXAMINATION TYPE: CT angio head neck DATE OF EXAM: 09/06/2024 10:19 PM COMPARISON: CT same day. CLINICAL INDICATION: Female, 49 years old with history of Expressive aphasia; [facility], TECHNIQUE: Axially acquired helical CT angiogram of the head and neck was obtained with contrast. Axi al images are supplemented with 3D reconstructions and MIP images which were post-processed at an in dependent workstation. NASCET criteria used. Contrast used:65 mL of Isovue 370 , Oral contrast used: None. CT DLP: 1443 mGycm, Automated exposure control for dose reduction was used. FINDINGS: CTA HEAD: No evidence of acute intracranial hemorrhage, mass effect, or midline shift. The ventricles, sulci, a nd cisterns are unremarkable. Loss of mcmahon-white matter differentiation involving the right superior cerebellum. Vertebral arteries: The vertebral arteries are patent. Vertebral artery dominance: Codominant Basilar artery: The basilar artery is intact. The basilar artery bifurcation is normal. Internal Carotid arteries: The cervical, petrous, cavernous and supraclinoid segments are normal. TORITO: Patent with no evidence of aneurysm. ACOM: Present without evidence of aneurysm. MCA: Patent with no evidence of aneurysm. LICENSING COORDINATOR: Patent with no evidence of aneurysm. PCOM: Hypoplastic bilaterally. Dural sinuses: Patent. CTA NECK: Right Carotid System: The common carotid artery and external carotid artery are patent. The carotid bifurcation demonstrate s no evidence of hemodynamically significant stenosis. The remaining portions of the internal carotid artery demonstrate normal size without significant narrowing. Left Carotid System: The common carotid artery and external carotid artery are patent. The carotid bifurcation demonstrate s no evidence of hemodynamically significant stenosis. The remaining portions of the internal carotid artery demonstrate normal size without significant narrowing. Vertebral arteries are patent without evidence hemodynamically significant stenosis. There is a three-vessel aortic arch. The origins of the great vessels are patent. No evidence of hemo dynamically significant stenosis. Upper thorax: Right upper lobe calcified granuloma. Mild paraseptal emphysema changes. IMPRESSION: 1. No evidence of dissection of the cervical internal carotid arteries or vertebral arteries. 2. No any evidence of significant stenosis at the carotid bifurcations. 3. No evidence of intracranial high-grade stenosis or intracranial aneurysm. 4. age-indeterminate loss of mcmahon-white matter differentiation involving the right superior cerebell um. [facility], , 09/06/2024 10:21 PM
[2024-09-06 22:32] LABS: Appearance,Urine Clear (Clear); Bilirubin,Urine Negative (Negative); Blood,Urine Negative (Negative); Color,Urine Colorless; Glucose,Urine (UA) Negative (Negative); Ketones,Urine 1+ (Negative); Leukocyte Esterase,Urine Negative (Negative); Nitrite,Urine Negative (Negative); Protein,Urine Negative (Negative); Specific Gravity,Urine 1.041 (1.001-1.035); Urobilinogen,Urine <2.0 mg/dL (<2.0)
[2024-09-06 22:38] LABS: Glucose,Whole Blood 109 mg/dL (70-110)
[2024-09-06 22:43] LABS: Amphetamine Screen,Urine Not Detected (NotDetected); Barbiturate Screen,Urine Not Detected (NotDetected); Benzodiazepines Screen,Urine Not Detected (NotDetected); Cocaine Screen,Urine Not Detected (NotDetected); Methadone Screen, Urine Not Detected (NotDetected); Opiate Screen,Urine Detected (NotDetected); Oxycodone Screen, Urine Not Detected (NotDetected); Phencyclidine Screen,Urine Not Detected (NotDetected); Tricyclic Antidepressant,Urine Not Detected (NotDetected); Urn Cannabinoid Scrn Not Detected (NotDetected)
[2024-09-06] MEDS: ATORVASTATIN 80 MG TAB PO SCH (23:12)
[2024-09-06] MEDS: ASPIRIN 325 MG TAB PO STA (23:12)
[2024-09-06] MEDS: SODIUM CHLORIDE 0.9% 1,000 ML IV SCH (23:15)
[2024-09-07 00:18] LABS: INR 0.9 (<1.2); Prothrombin Time 10.6 sec (10.0-12.5)
[2024-09-07 00:45] LABS: Partial Thromboplastin Time 21.7 sec (22.0-30.0)
[2024-09-07 06:31] LABS: Basophils # (A) 0.09 10*3/uL (0.00-0.10); Basophils % (A) 0.7 %; Eosinophils # (A) 0.26 10*3/uL (0.04-0.35); Eosinophils % (A) 2.1 %; HGB 12.6 g/dL (12.0-15.0); Lymphocytes # (A) 2.86 10*3/uL (0.90-5.00); Lymphocytes % (A) 23.2 %; MCH 31.3 pg (27.0-32.0); MCHC 34.1 g/dL (32.0-37.0); MCV 91.8 fL (80.0-97.0); Mean Platelet Volume 9.7 fL (9.5-12.2); Monocytes # (A) 1.26 10*3/uL (0.20-1.00); Monocytes % (A) 10.2 %; Neutrophils # (A) 7.82 10*3/uL (1.80-7.70); Neutrophils % (A) 63.6 %; Platelet Count 287 10*3/uL (140-440); RBC 4.03 10*6/uL (4.10-5.20); WBC 12.32 10*3/uL (4.50-10.00)
[2024-09-07] MEDS: ASPIRIN 325 MG TAB PO SCH (08:30)
[2024-09-07] MEDS ORDERED: ACETAMINOPHEN TAB 325 MG TAB PO PRN (09:50)
[2024-09-07 10:30] LABS: Chol/HDL Ratio 4.22 Ratio; LDL Cholesterol,Calculated 97.3 mg/dL (0.0-131.0)
[2024-09-07 11:44] LABS: T4, Free (Free Thyroxine) 1.66 ng/dL (0.78-2.19)
--- NOTE | 2024-09-07 16:30 | MR ---
EXAMINATION TYPE: MR brain wo con DATE OF EXAM: 09/07/2024 12:38 PM COMPARISON: None. CLINICAL INDICATION: Female, 49 years old with history of Neuro deficit, acute, stroke suspected, Armando ro deficit, acute stroke suspected TECHNIQUE: Multiplanar, multiecho imaging on a 3.0 Barb magnet is performed through the brain. Stud y is performed within 24 hours of arrival to the hospital.Multiplanar, multiecho imaging on a 3.0 Martha la magnet is performed through the knee. IV Contrast: mL (None, if empty) FINDINGS: The craniovertebral junction is normal. The pituitary is normal. Diffusion-weighted imaging is performed. No abnormal hyperintensity is present to suggest an acute i ntracranial infarct or acute ischemic change. There are hyperintense areas within the right cerebellum and vermis of the cerebellum. Hyperintense a reas are within the left lingular region. Small foci of uptake are within the bilateral occipital lob es. There is some hyperintensity within the medial right occipital lobe cortex. Couple small areas ar e within cortical and subcortical regions within the right centrum semiovale. Tiny cortical area of u ptake is within the left parietal cortex at the vertex. There are additional white matter hyperintensities on T2 weighted sequences. Scattered hyperintensiti es are inverted recovery weighted sequences. Ventricles and sulci are appropriate for the patient age. IMPRESSION: 1. Multiple bilateral hyperintensities on diffusion weighted imaging can be compatible with acute isc hemic changes. 2. There is some additional T2 hyperintensities which can be related to more chronic white matter isc hemic changes. A [place] level critical message alert has been initiated for Theodore Weller MD via the [employer] on 09/07/2024 4:28 PM. This message alert has been sent to Theodore Weller MD via the preferences provided by the clinician for the receipt of Radiology Critical Findings. Message ID [id number]. [facility], , 09/07/2024 4:28 PM
[2024-09-07] MEDS: CLOPIDOGREL 75 MG TAB PO STA (18:50)
--- NOTE | 2024-09-07 18:59 | P.CNNES ---
History of Present Illness Consult date: 09/07/24 Requesting physician: Ashkan Magallanes Reason for Consult: Intermittent expressive aphasia History of Present Illness: Patient is a 49-year-old left-handed female, otherwise healthy, came to the hospital yesterday at 8:23 PM for strokelike symptoms. Patient states that she was [facility] in [facility] days. She got out of [facility] on Wednesday night, on 09/02/2024. She celebrated with bonfire that night and she was feeling well. Next day on Wednesday morning, she woke up feeling not good, throwing up, spinning. She was not able to stand, would sit down. She stated at home. Next day on Wednesday she stayed mostly in the bed, as when she would sit up, for 10 minutes, she would feel dizziness nausea vomiting. On Wednesday she was feeling better with no nausea vomiting but still slightly dizzy. Yesterday on Wednesday at around 4 PM, she had an episode in which she could not talk, not making sense. She just could not tell what she was trying to say. There was no facial droop or visual problem. Denies any new numbness or tingling or focal weakness. Due to the symptoms, she came to the ER. Vital signs on arrival blood pressure 142/80, pulse rate 107, temperature 99.0. Blood test shows WBC 20.5, hemoglobin 13.8, normal platelets. PT PTT normal, sodium 132 potassium is normal, renal functions are normal. AST is 42, ALT 87. Troponin negative. UA negative, urine drug screen positive for opiate. TSH is slightly decreased 0.291 with normal free T4 of 1.66. CT head showed age-indeterminate CVA to the superior right cerebellum. Correlate with patient's history. No additional evidence of acute/subacute CVA. I personally reviewed CT head, agree with the findings, although appears somewhat subacute in nature. Patient not taking any medications at home. EKG shows sinus rhythm. Patient states that in 2007, she had a left facial droop, was suspected stroke. Later they said was possible MS but no conclusion was made. Patient denies any chest pain or shortness of breath. Patient has smoked 1 pack/day for 25 years, quit 240 days ago before she was incarcerated. She also used to drink 6 pack of beer per day for 25 years. Quit drinking since she was incarcerated. She will smoke marijuana occasionally. No use of drugs. At present she states that she feels better but still feels slightly dizzy. No more nausea or vomiting. Still not feeling very well, still have speech difficulty. Review of Systems All pertinent positive and negative review of systems mentioned in the HPI, otherwise unremarkable. Past Medical History Past Medical History: No Reported History Additional Past Medical History / Comment(s): Multiple UTIs/urinary retention, chronic low back pain History of Any Multi-Drug Resistant Organisms: None Reported Past Surgical History: Orthopedic Surgery, Tubal Ligation Additional Past Surgical History / Comment(s): bone graft left wrist at age 11, ORIF RT ELBOW SX X3 Past Anesthesia/Blood Transfusion Reactions: No Reported Reaction Past Psychological History: No Psychological Hx Reported Smoking Status: Current every day smoker, Former smoker Past Alcohol Use History: None Reported, Daily Past Drug Use History: None Reported - Past Family History Mother Family Medical History: No Reported History Additional Family Medical History / Comment(s): Mother is healthy Father Family Medical History: Hypertension Medications and Allergies Home Medications Medication Instructions Recorded Confirmed Type No Known Home Medications 09/07/24 09/07/24 History Allergies Allergy/AdvReac Type Severity Reaction Status Date / Time No Known Allergies Allergy Verified 09/07/24 09:58 Physical Examination - Vital Signs Vital Signs: Vital Signs Temp Pulse Pulse Resp BP BP Pulse Ox 09/07/24 16:00 98.4 F 88 16 137/80 98 09/07/24 12:00 98.1 F 68 16 121/75 98 09/07/24 08:38 98.4 F 81 18 118/74 98 09/07/24 06:00 75 15 120/79 98 09/07/24 05:43 69 16 120/62 98 09/07/24 05:00 96 18 125/73 97 09/07/24 04:00 69 16 115/72 97 09/07/24 03:43 69 14 115/71 97 09/07/24 03:00 73 17 120/72 97 09/07/24 02:00 77 18 113/68 96 09/07/24 01:43 82 16 117/80 96 09/07/24 01:00 87 18 117/86 98 09/07/24 00:43 84 16 115/81 99 09/07/24 00:00 89 16 134/84 98 09/06/24 23:43 95 20 153/98 97 09/06/24 23:00 90 16 90/78 98 09/06/24 22:45 91 16 131/93 98 09/06/24 22:19 95 18 134/82 98 09/06/24 20:36 99 F 107 H 19 142/80 96 Intake and Output 09/07/24 09/07/24 09/07/24 06:59 14:59 22:59 Intake Total 1400 Balance 1400 Intake: Intake, IV Titration 900 Amount Sodium Chloride 0.9% 1, 900 000 ml @ 75 mls/hr IV . [id number] GILDARDO Rx#:[id number] Oral 500 Other: # Voids 2 # Bowel Movements 0 Patient is a middle-aged female, in no acute distress. Patient is alert awake oriented to time place and person. Speech is clear and language functions are slightly affected. She has some hesitancy with speech at times, some paraphasic errors noted and sometimes speech blocked. Patient can name and repeat fairly well, although repetition was effortful. Attention, concentration and fund of knowledge is adequate. On cranial nerve examination, pupils are equal, round and reacting to light, visual castle are full on confrontation, with no neglect on double simultaneous stimulation. Extraocular muscles are intact with no nystagmus. Face is symmetric, tongue protrudes to the midline. Palatal elevation and sensation normal, hearing is slightly decreased and shoulder shrug normal, facial sensation normal. On muscle strength testing, there is no pronator drift and the strength is normal in arms and legs distally and proximally. Deep tendon reflexes are (right/left) biceps 1+/2, brachioradialis 1+/2, knees 2+/2+, ankles 1+/1+ plantars are possible upgoing bilaterally. Sensory to touch is equal with no neglect on double simultaneous stimulation. Cerebellar function showed slight ataxia for [id number]-[id number] testing only with the right side. No dysdiadochokinesia. No ataxia for [id number] testing on either side. Tone and bulk of muscles normal. Gait deferred.. On general examination, there is no carotid bruit or murmur, S1-S2 audible. Chest is clear on consultation. Abdomen is soft nontender. No organomegaly, bowel sounds present. Peripheral pulses are present. No peripheral edema. Results - Laboratory Findings CBC and BMP: 09/07/24 05:54 09/06/24 19:32 Abnormal Lab Findings: Abnormal Labs 09/06/24 09/06/24 09/06/24 19:32 19:32 19:32 WBC 20.50 H RBC Hct MCH 32.2 H MPV 9.4 L Immature Gran # 0.06 H Neutrophils # 14.86 H Monocytes # 1.87 H Basophils # 0.11 H APTT 21.7 L Sodium 132 L Chloride 97 L Glucose 123 H AST 42 H ALT 87 H Triglycerides TSH Ur Specific [place] Urine Ketones Urine Opiates Screen 09/06/24 09/07/24 09/07/24 22:24 05:54 05:54 WBC 12.32 H RBC 4.03 L Hct 37.0 L MCH MPV Immature Gran # Neutrophils # 7.82 H Monocytes # 1.26 H Basophils # APTT Sodium Chloride Glucose AST ALT Triglycerides 162.00 H TSH Ur Specific [place] 1.041 H Urine Ketones 1+ H Urine Opiates Screen Detected H 09/07/24 05:54 WBC RBC Hct MCH MPV Immature Gran # Neutrophils # Monocytes # Basophils # APTT Sodium Chloride Glucose AST ALT Triglycerides TSH 0.291 L Ur Specific [place] Urine Ketones Urine Opiates Screen Assessment and Plan Assessment: * Acute ischemic stroke, multiple areas involving bilateral anterior and posterior circulation, highly suggestive of cardiac source. * Hypertension * Hyperlipidemia * Ex tobacco use * History of alcoholism * Recent incarceration x 240 days, released 1 day prior to symptoms onset. Plan: Patient was not a candidate for TNK, as she came outside the window for TNK. Her current NIH stroke scale is 2. MRI of the brain without contrast revealed multiple bilateral hyperintensities on diffusion-weighted imaging can be compatible with acute ischemic changes. There is some additional T2 hyperintensities which can be related to more chronic white matter ischemic change. I personally reviewed MRI, agree with the findings. On my review, they involve multiple small regions including the right medial cerebellar lobe, right parieto-occipital junction, right superior cerebellum and left posterior perisylvian region. 2-D echo with bubble study to rule out PFO CTA head and neck showed: No evidence of dissection of the cervical internal carotid arteries or vertebral arteries. No evidence of significant stenosis at the carotid bifurcation. No evidence of intracranial high-grade stenosis or intracranial aneurysm. Fasting a.m. lipid panel cholesterol 170, LDL 97, HDL 40, triglycerides 162. Agree with starting Lipitor 80 mg daily. Hemoglobin A1c Permissive hypertension for next 24-48 hours Start aspirin 325 mg daily. We will also give loading dose of Plavix 150 mg today followed by Plavix 75 mg daily for at least 21 days. Neuro checks as per protocol. Telemetry monitoring rule out any arrhythmia PT, OT, speech therapy DVT prophylaxis: Heparin 5000 units subcu every 8 hours Neurology will continue to follow. Thank you for the consult. Time with Patient: Greater than 30
[2024-09-07] MEDS: CLOPIDOGREL 75 MG TAB PO ONE (20:29)
--- NOTE | 2024-09-07 22:05 | P.HPIM ---
History of Present Illness H&P Date: 09/07/24 This is a pleasant 49-year-old female with medical history significant for multiple urinary tract infections urinary retention with chronic low back pain and orthopedic surgeries. She comes into the hospital with speech abnormality which began about 1 PM yesterday afternoon. Patient denies slurred speech but she has been having a difficult time finding her words. States that the 2 days prior she had been vomiting and felt off, and weak. Was unable to get up out of bed. The vomiting has stopped. [facility]; was [facility] 10 [facility]. States she did drink alcohol on Wednesday. Presented to the hospital around 8:30 in the evening. She does have a prior history of stroke in the past. Patient has no limb numbness or focal weakness no headache. She did take a Hudson earlier in the day yesterday but denied any alcohol use. Her brain CT on admission reveals an age-indeterminate CVA to the superior right cerebellum correlate with patient history no additional evidence for an acute/subacute infarct. CT angiography reveals no evidence of acute intracranial hemorrhage ma ss effect or midline shift. No evidence of dissection of the cervical internal carotid arteries or vertebral arteries. No evidence of any significant stenosis at the carotid bifurcations. No evidence of intracranial high-grade stenosis or intracranial aneurysm. An age-indeterminate loss of mcmahon-white matter differentiation involving the right superior cerebellum. EKG on admission reveals sinus rhythm with a heart rate of [address] or T wave abnormalities. Her blood work reveals a white blood cell count of 20.50, sodium level of 132 BUN of 14 creatinine 0.65. Her AST is 42 ALT is 87. Urinalysis was negative for infection. Urine drug toxicology shows opiates. This morning white blood cell count is down to 12.32. She was given a 1 L fluid bolus and is maintained on normal saline at 75 mL/h. She is currently on aspirin 325 mg daily and atorvastatin 80 mg at bedtime. Patient did not receive tenecteplase as she was outside the window. Admitted to the hospital with neurology consultation. Echocardiogram and MRI are currently pending. REVIEW OF SYSTEMS: CONSTITUTIONAL: No fever, no malaise, no fatigue. HEENT: No recent visual problems or hearing problems. Denied any sore throat. CARDIOVASCULAR: No chest pain, orthopnea, PND, no palpitations, no syncope. PULMONARY: No shortness of breath, no cough, no hemoptysis. GASTROINTESTINAL: No diarrhea, no nausea, no vomiting, no abdominal pain. NEUROLOGICAL: No headaches, no weakness, no numbness. HEMATOLOGICAL: Denies any bleeding or petechiae. GENITOURINARY: Denies any burning micturition, frequency, or urgency. MUSCULOSKELETAL/RHEUMATOLOGICAL: Denies any joint pain, swelling, or any muscle pain. ENDOCRINE: Denies any polyuria or polydipsia. The rest of the 14-point review of systems is negative. PHYSICAL EXAMINATION: GENERAL: The patient is alert and oriented x3, not in any acute distress. Well developed, well nourished. HEENT: Pupils are round and equally reacting to light. EOMI. No scleral icterus. No conjunctival pallor. Normocephalic, atraumatic. No pharyngeal erythema. No t hyromegaly. CARDIOVASCULAR: S1 and S2 present. No murmurs, rubs, or gallops. PULMONARY: Chest is clear to auscultation, no wheezing or crackles. ABDOMEN: Soft, nontender, nondistended, normoactive bowel sounds. No palpable organomegaly. MUSCULOSKELETAL: No joint swelling or deformity. EXTREMITIES: No cyanosis, clubbing, or pedal edema. NEUROLOGICAL: Gross neurological examination did not reveal any focal deficits. SKIN: No rashes. Assessment Intermittent transient aphasia with concern for an acute ischemic infarct Vomiting and weakness History of stroke affecting the right superior cerebllum; with resolved left hemiparesis History of chronic alcoholism History of UTI and urinary retention Chronic back pain with opiate use Leukocytosis reactive because of the vomiting improved after fluid bolus Former smoker GI prophylaxis DVT prophylaxis Plan Neurology consultation Continue neuro checks Pending brain MRI Pending echocardiogram Continue aspirin and high dose statin therapy with lipitor 80 mg HS Check lipid panel Check hemoglobin A1C The impression and plan of care has been dictated by Madeline Talamantes Nurse Practitioner as directed. Dr. Kashmir MD I have performed a history and physical examination and medical decision making of this patient, discussed the same with the dictator, and agree with the dictators assessment and plan as written, documented as a scribe. Based on total visit time, I have performed more than 50% of this visit. Past Medical History Past Medical History: No Reported History Additional Past Medical History / Comment(s): Multiple UTIs/urinary retention, chronic low back pain History of Any Multi-Drug Resistant Organisms: None Reported Past Surgical History: Orthopedic Surgery, Tubal Ligation Additional Past Surgical History / Comment(s): bone graft left wrist at age 11, ORIF RT ELBOW SX X3 Past Anesthesia/Blood Transfusion Reactions: No Reported Reaction Past Psychological History: No Psychological Hx Reported Smoking Status: Current every day smoker, Former smoker Past Alcohol Use History: None Reported, Daily Past Drug Use History: None Reported - Past Family History Mother Family Medical History: No Reported History Additional Family Medical History / Comment(s): Mother is healthy Father Family Medical History: Hypertension Medications and Allergies Home Medications Medication Instructions Recorded Confirmed Type No Known Home Medications 09/07/24 09/07/24 History Allergies Allergy/AdvReac Type Severity Reaction Status Date / Time No Known Allergies Allergy Verified 09/07/24 09:58 Physical Exam Vitals: Vital Signs Temp Pulse Pulse Resp BP BP Pulse Ox 09/07/24 08:38 98.4 F 81 18 118/74 98 09/07/24 06:00 75 15 120/79 98 09/07/24 05:43 69 16 120/62 98 09/07/24 05:00 96 18 125/73 97 09/07/24 04:00 69 16 115/72 97 09/07/24 03:43 69 14 115/71 97 09/07/24 03:00 73 17 120/72 97 09/07/24 02:00 77 18 113/68 96 09/07/24 01:43 82 16 117/80 96 09/07/24 01:00 87 18 117/86 98 09/07/24 00:43 84 16 115/81 99 09/07/24 00:00 89 16 134/84 98 09/06/24 23:43 95 20 153/98 97 09/06/24 23:00 90 16 90/78 98 09/06/24 22:45 91 16 131/93 98 09/06/24 22:19 95 18 134/82 98 09/06/24 20:36 99 F 107 H 19 142/80 96 Intake and Output 09/06/24 09/07/24 09/07/24 22:59 06:59 14:59 Other: Weight 68.039 kg Results CBC & Chem 7: 09/07/24 05:54 09/06/24 19:32 Labs: Abnormal Lab Results - Last 24 Hours (Table) 09/06/24 09/06/24 09/06/24 Range/Units 19:32 19:32 19:32 WBC 20.50 H (4.50-10.00) 10*3/uL RBC (4.10-5.20) 10*6/uL Hct (37.2-46.3) % MCH 32.2 H (27.0-32.0) pg MPV 9.4 L (9.5-12.2) fL Immature Gran # 0.06 H (0.00-0.04) 10*3/uL Neutrophils # 14.86 H (1.80-7.70) 10*3/uL Monocytes # 1.87 H (0.20-1.00) 10*3/uL Basophils # 0.11 H (0.00-0.10) 10*3/uL APTT 21.7 L (22.0-30.0) sec Sodium 132 L (137-145) mmol/L Chloride 97 L (98-107) mmol/L Glucose 123 H (74-99) mg/dL AST 42 H (14-36) U/L ALT 87 H (4-34) U/L Ur Specific [place] (1.001-1.035) Urine Ketones (Negative) Urine Opiates Screen (NotDetected) 09/06/24 09/07/24 Range/Units 22:24 05:54 WBC 12.32 H (4.50-10.00) 10*3/uL RBC 4.03 L (4.10-5.20) 10*6/uL Hct 37.0 L (37.2-46.3) % MCH (27.0-32.0) pg MPV (9.5-12.2) fL Immature Gran # (0.00-0.04) 10*3/uL Neutrophils # 7.82 H (1.80-7.70) 10*3/uL Monocytes # 1.26 H (0.20-1.00) 10*3/uL Basophils # (0.00-0.10) 10*3/uL APTT (22.0-30.0) sec Sodium (137-145) mmol/L Chloride (98-107) mmol/L Glucose (74-99) mg/dL AST (14-36) U/L ALT (4-34) U/L Ur Specific [place] 1.041 H (1.001-1.035) Urine Ketones 1+ H (Negative) Urine Opiates Screen Detected H (NotDetected) Assessment and Plan Time with Patient: Greater than 30
[2024-09-08] MEDS: CLOPIDOGREL 75 MG TAB PO SCH (08:16)
[2024-09-08] MEDS: ENOXAPARIN 40 MG/0.4 ML SYRINGE SQ SCH (08:17)
[2024-09-08 11:38] VITALS: RESP 16
[2024-09-08 15:54] VITALS: BP 123/86; PULSE 78; TEMP 99.2
--- NOTE | 2024-09-08 18:21 | CA ---
Transthoracic Echo Report Name: Lawanda Morel Age: 49 Gender: F : 1975 Exam Date: 09/08/2024 13:30 Exam Location: [facility] Ht (in): 63 Wt (lb): 150 Ordering Physician: Tracey Tadeo MD Attending/Referring Phys: [employer] Supervisor Madiha Knox RDCS Procedure CPT: Indications: Mulitple bilateral strokes Cardiac Hx: Technical Quality: Good Contrast 1: Agitated Saline Total Dose (mL): 8 Contrast 2: Total Dose (mL): MEASUREMENTS (Male / Female) Normal Values 2D ECHO LV Diastolic Diameter PLAX 4.3 cm 4.2 - 5.9 / 3.9 - 5.3 cm LV Systolic Diameter PLAX 2.6 cm IVS Diastolic Thickness 1.0 cm 0.6 - 1.0 / 0.6 - 0.9 cm LVPW Diastolic Thickness 0.9 cm 0.6 - 1.0 / 0.6 - 0.9 cm LV Relative Wall Thickness 0.4 RV Internal Dim ED PLAX 2.6 cm LA Systolic Diameter LX 3.2 cm 3.0 - 4.0 / 2.7 - 3.8 cm LV Diastolic Volume MOD 4C 94.2 cm??? LV Systolic Volume MOD 4C 47.4 cm??? LV Ejection Fraction MOD 4C 49.7 % LV Cardiac Index MOD 4C 2159.0 cm???/min???m??? LV Diastolic Length 4C 7.7 cm LV Systolic Length 4C 6.4 cm LV Diastolic Volume MOD 2C 78.9 cm??? LV Systolic Volume MOD 2C 29.7 cm??? LV Ejection Fraction MOD 2C 62.3 % LV Cardiac Index MOD 2C 2268.5 cm???/min???m??? LV Diastolic Length 2C 7.6 cm LV Systolic Length 2C 5.6 cm LA Volume 42.4 cm??? 18 - 58 / 22 - 52 cm??? LA Volume Index 24.2 cm???/m??? 16 - 28 cm???/m??? M-MODE Aortic Root Diameter MM 2.6 cm AV Cusp Separation MM 2.2 cm DOPPLER AV Peak Velocity 163.4 cm/s AV Peak Gradient 10.7 mmHg MV Area PHT 3.1 cm??? Mitral E Point Velocity 76.6 cm/s Mitral A Point Velocity 120.3 cm/s Mitral E to A Ratio 0.6 MV Deceleration Time 241.4 ms TR Peak Velocity 164.6 cm/s TR Peak Gradient 10.8 mmHg Right Ventricular Systolic Press 15.8 mmHg FINDINGS Left Ventricle Left ventricular ejection fraction is estimated at 55-60 %. Left ventricular cavity size normal. Left ventricular wall thickness normal. Normal left ventricular wall motion. Right Ventricle Normal right ventricular size. Right ventricular systolic pressure within normal limits. Right Atrium Normal right atrial size. No right atrial thrombus or mass seen. Negative agitated saline bubble study for right to left shunt. Left Atrium Normal left atrial size. No left atrial thrombus or mass present. Mitral Valve Structurally normal mitral valve. No mitral stenosis, regurgitation or prolapse. Aortic Valve Trileaflet aortic valve.no aortic valve stenosis or regurgitation. Tricuspid Valve Structurally normal tricuspid valve. Trace to mild tricuspid regurgitation. Pulmonic Valve Structurally normal pulmonic valve. No pulmonic regurgitation. Pericardium No pericardial effusion. Aorta Normal size aortic root and proximal ascending aorta. CONCLUSIONS 1. Normal left ventricular size and systolic function 2. No shunting by contrast bubble study 3. Trace to mild tricuspid regurgitation Previewed by: Dr. Shyam Ryan MD (Electronically Signed) Final Date: 08 September 2024 18:20
--- NOTE | 2024-09-11 21:52 | P.DS ---
Providers Date of admission: 09/06/24 22:44 Attending physician: Theodore Weller Consults: 09/06/24 22:43 Consult Physician Routine Consulting Provider: Tracey Tadeo Consult Reason/Comments: Intermittent expressive aphasia Do you want consulting provider notified?: Yes Primary care physician: Stated None Hospital Course: Final Diagnosis Intermittent transient aphasia with acute ischemic stroke; concern for embolic phenomenon Vomiting and weakness resolved. History of stroke affecting the right superior cerebllum; with resolved left hemiparesis History of chronic alcoholism History of UTI and urinary retention Chronic back pain with opiate use Leukocytosis reactive because of the vomiting improved after fluid bolus Former smoker History Of alcoholism and polysubstance abuse Discharge Disposition Patient is stable for discharge home. Patient to follow-up closely with a neurologist on discharge and recommendations have been given. Patient had follow-up with Dr. Autumn Beatty prior to her incarceration and would recommend to follow-up postdischarge. Patient is agreeable to this plan. Patient is discharged on aspirin Plavix dual antiplatelet therapy as well as statin therapy. Patient will discharge on a event monitor for 2 weeks to rule out a cardiac arrhythmia. Total time taken to discharge planning greater than 35 minutes. Hospital Course This is a pleasant 49-year-old female with medical history significant for multiple urinary tract infections urinary retention with chronic low back pain and orthopedic surgeries. She comes into the hospital with speech abnormality which began about 1 PM yesterday afternoon. Patient denies slurred speech but she has been having a difficult time finding her words. States that the 2 days prior she had been vomiting and felt off, and weak. Was unable to get up out of bed. The vomiting has stopped. Patient got out of group home Wednesday; was in group home for 10 months. States she did drink alcohol on Wednesday. Presented to the hospital around 8:30 in the evening. She does have a prior history of stroke in the past. Patient has no limb numbness or focal weakness no headache. She did take a [place] earlier in the day yesterday but denied any alcohol use. Her brain CT on admission reveals an age-indeterminate CVA to the superior right cerebellum correlate with patient history no additional evidence for an acute/subacute infarct. CT angiography reveals no evidence of acute intracranial hemorrhage mass effect or midline shift. No evidence of dissection of the cervical internal carotid arteries or vertebral arteries. No evidence of any significant stenosis at the carotid bifurcations. No evidence of intracranial high-grade stenosis or intracranial aneurysm. An age-indeterminate loss of mcmahon-white matter differentiation involving the right superior cerebellum. EKG on admission reveals sinus rhythm with a heart rate of [address] or T wave abnormalities. Her blood work reveals a white blood cell count of 20.50, sodium level of 132 BUN of 14 creatinine 0.65. Her AST is 42 ALT is 87. Urinalysis was negative for infection. Urine drug toxicology shows opiates. This morning white blood cell count is down to 12.32. She was given a 1 L fluid bolus and is maintained on normal saline at 75 mL/h. She is currently on aspirin 325 mg daily and atorvastatin 80 mg at bedtime. Patient did not receive tenecteplase as she was outside the window. Admitted to the hospital with neurology consultation. Echocardiogram was completed and reveals normal left ventricular size and systolic function with a negative bubble study. There is trace to mild tricuspid regurgitation. Brain MRI was completed which reveals multiple bilateral hyperintensities on T2 weighted sequences compatible with acute ischemic change. There is some additional T2 hyperintensities which could be related to more chronic white matter ischemic changes. There was a small foci of uptake within the bilateral occipital lobes there is a some hyperintensity within the medial right occipital lobe cortex. Couple small areas are within the cortical and subcortical regions within the right centrum semiovale. Time of cortical area of uptake is within the left parietal cortex at the vertex. This is concern for embolic phenomenon. Patient has no prior history of atrial fibrillation and because of this was discharged home with a 2- week event monitor and to follow-up with her family doctor on discharge. Patient will continue aspirin and Plavix dual antiplatelet therapy for the next 21 days after which she will stop the Plavix and continue on aspirin daily. Patient is also on high intensity statin therapy. Patient's aphasia has resolved at this time. Review of Systems Constitutional: Denied any fatigue denied any fever. Cardio vascular: denied any chest pain, palpitations Gastrointestinal: denied any nausea, vomiting, diarrhea Pulmonary: Denied any shortness of breath cough Neurologic denied any new focal deficits All inpatient medications were reviewed and appropriate changes in these medications as dictated in the interval history and assessment and plan. PHYSICAL EXAMINATION: GENERAL: The patient is alert and oriented x3, not in any acute distress. Well developed, well nourished. HEENT: Pupils are round and equally reacting to light. EOMI. No scleral icterus. No conjunctival pallor. Normocephalic, atraumatic. No pharyngeal erythema. No thyromegaly. CARDIOVASCULAR: S1 and S2 present. No murmurs, rubs, or gallops. PULMONARY: Chest is clear to auscultation, no wheezing or crackles. ABDOMEN: Soft, nontender, nondistended, normoactive bowel sounds. No palpable organomegaly. MUSCULOSKELETAL: No joint swelling or deformity. EXTREMITIES: No cyanosis, clubbing, or pedal edema. NEUROLOGICAL: Gross neurological examination did not reveal any focal deficits. SKIN: No rashes. Please see medication reconciliation for a list of current medications. Thank you for allowing us to participate in the care of this patient. The impression and plan of care has been dictated by Madeline Talamantes, Nurse Practitioner as directed. Dr. Kashmir MD I have performed a history and physical examination and medical decision making of this patient, discussed the same with the dictator, and agree with the dictators assessment and plan as written, documented as a scribe. Based on total visit time, I have performed more than 50% of this visit. Patient Condition at Discharge: Stable Plan - Discharge Summary Discharge Rx Participant: Yes New Discharge Prescriptions: New Aspirin 325 mg PO DAILY #30 tab Atorvastatin [Lipitor] 80 mg PO HS #30 tab Clopidogrel [Plavix] 75 mg PO DAILY #21 tab Discharge Medication List Aspirin 325 mg PO DAILY #30 tab 09/08/24 [Rx] Atorvastatin [Lipitor] 80 mg PO HS #30 tab 09/08/24 [Rx] Clopidogrel [Plavix] 75 mg PO DAILY #21 tab 09/08/24 [Rx] Follow up Appointment(s)/Referral(s): Maria Eugenia Mayes MD [STAFF PHYSICIAN] - 1-2 Days (CALL AND MAKE NADINE! ) Camryn Gunderson MD [Medical Doctor] - 1 Week (Neurology. CALL AND MAKE NADINE!) [facility] - 1 Week (CALL AND MAKE NADINE!) Autumn Beatty MD [STAFF PHYSICIAN] - 1-2 Days (CALL AND MAKE NADINE! (PCP)) Patient Instructions/Handouts: Ischemic Stroke (DC) Activity/Diet/Wound Care/Special Instructions: Continue aspirin and plavix together for 21 days after than stop the plavix and continue with aspirin 325 mg daily Continue atorvastatin 80 mg HS Follow up with a PCP, Can re-establish with Dr. Beatty or can follow up at [facility] with Dr Mayes or at the [facility] Discharge Disposition: HOME SELF-CARE
== END 2024-09-08 18:35 | disposition home or self-care (01) | DRG 65 ==
LOC: EC 20:23 → 3SCARD 22:44
PROVIDERS: ADMIT Hospitalist; ATTEND Hospitalist
DX: I63.441 Cerebral infarction due to embolism of right cerebellar artery (principal); I69.354 Hemiplegia and hemiparesis following cerebral infarction affecting left non-dominant side; F10.21 Alcohol dependence, in remission; F19.11 Other psychoactive substance abuse, in remission; I10 Essential (primary) hypertension; R47.01 Aphasia; D72.829 Elevated white blood cell count, unspecified; R11.2 Nausea with vomiting, unspecified; E78.5 Hyperlipidemia, unspecified; G89.29 Other chronic pain; F11.90 Opioid use, unspecified, uncomplicated; R29.701 NIHSS score 1; R29.702 NIHSS score 2; M54.9 Dorsalgia, unspecified; Z87.891 Personal history of nicotine dependence; Z65.8 Other specified problems related to psychosocial circumstances; Z82.49 Family history of ischemic heart disease and other diseases of the circulatory system; Z87.440 Personal history of urinary (tract) infections
CPT/HCPCS: 36415; 70450; 70496; 70498; 70551; 80053; 80061; 80306; 81003; 83036; 84439; 84443; 84484; 85025; 85610; 85730; 86850; 86900; 86901; 93005; 93270; 93306; 99285